=== PATIENT | female | born 1950 | race Caucasian/White ===

== ENCOUNTER → 2016-09-05 | Outpatient (REF) | payer MEDICARE, BC ==
[~2016-09-05] MED LIST: AMLO10TA2 PO; BENA25TA4 PO; BIOT10005 PO; FURO20TA2 PO; LANS30CA PO; MULTCAP PO; MYLI40DR PO; PRAV10TA PO; PROTPAK PO; RANI1TAB6 PO; REGL10TA6 PO; VITA100037 PO; ZOLO25TA PO; estroven OR; treximet OR
[2016-09-05 14:07] LABS: FOLATE 23.1 NG/ML
== END ==
LOC: M LAB REF 13:04
PROVIDERS: ATTEND Internal Medicine
DX: R20.2 Paresthesia of skin (principal)

== ENCOUNTER → 2017-02-04 | Outpatient (REF) | payer MEDICARE, BC ==
[~2017-02-04] MED LIST changes: -BIOT10005 PO; +BIOT10008 PO; -PRAV10TA PO; +PRAV10TA4 PO; -VITA100037 PO; +VITA100067 PO
[2017-02-07 00:08] LABS: Lyme Disease IgG/IgM Antibodie <0.91 ISR (0.00-0.90); Lyme Disease IgM Ab Quantitati <0.80 index (0.00-0.79)
== END ==
LOC: M LABNEURO 13:31
PROVIDERS: ATTEND Physician Assistant Medical
DX: M25.50 Pain in unspecified joint (principal); R51 Headache

== ENCOUNTER → 2018-08-20 | Outpatient (REF) | payer MEDICARE, BC ==
[~2018-08-20] MED LIST changes: -AMLO10TA2 PO; +AMLO10TA5 PO
[2018-08-20 20:20] LABS: FOLATE 23.1 NG/ML
== END ==
LOC: M LAB REF 16:58
PROVIDERS: ATTEND Internal Medicine
DX: R20.2 Paresthesia of skin (principal)

== ENCOUNTER → 2019-01-20 | Outpatient (REF) | payer MEDICARE, BC ==
[~2019-01-20] MED LIST changes: +RANI-356 PO; -RANI1TAB6 PO
== END ==
LOC: M LAB REF 12:35
PROVIDERS: ATTEND Internal Medicine
DX: M79.10 Myalgia, unspecified site (principal)

== ENCOUNTER → 2019-05-20 | Outpatient (CLI) | payer MEDICARE, BC ==
[~2019-05-20] MED LIST changes: -RANI-356 PO; +RANI-397 PO
[2019-05-20 10:53] LABS: BASO % 0.3 % (0.0-1.0); EOS # 0.2 10^3/uL (0.0-0.5); EOS % 2.9 % (0.0-3.0); HEMATOCRIT 46.9 % (36.0-47.0); HEMOGLOBIN 14.9 g/dl (12.0-15.5); LYMPH # 2.7 10^3/uL (1.5-5.0); MEAN CORPUSCULAR HEMOGLOBIN 30.7 pg (27.0-33.0); MEAN CORPUSCULAR HGB CONC 31.8 g/dl (32.0-36.5); MEAN CORPUSCULAR VOLUME 96.7 fl (80.0-96.0); MONO # 0.5 10^3/uL (0.0-0.8); MONO % 7.8 % (0.0-5.0); NEUTROPHILS % 46.7 % (36.0-66.0); PLATELET COUNT, AUTOMATED 341 10^3/uL (150-450); RED BLOOD COUNT 4.85 10^6/uL (4.00-5.40); WHITE BLOOD COUNT 6.5 10^3/uL (4.0-10.0)
[2019-05-20 11:13] LABS: ALBUMIN 4.1 GM/DL (3.2-5.2); ALT/SGPT 28 U/L (12-78); BILIRUBIN,TOTAL 0.5 MG/DL (0.2-1.0); BLOOD UREA NITROGEN 15 MG/DL (7-18); CALCIUM LEVEL 9.1 MG/DL (8.8-10.2); CARBON DIOXIDE LEVEL 28 MEQ/L (21-32); CHLORIDE LEVEL 107 MEQ/L (98-107); CHOLESTEROL LEVEL 229 MG/DL (<200); CHOLESTEROL RISK RATIO 1.991 (<5); CREATININE FOR GFR 0.79 MG/DL (0.55-1.30); GLOMERULAR FILTRATION RATE > 60.0 (>39); GLUCOSE, FASTING 108 MG/DL (70-100); HDL CHOLESTEROL 115 MG/DL (>40); LDL CHOLESTEROL 83 MG/DL (<100); NON-HDL-C 114 MG/DL; POTASSIUM SERUM 4.6 MEQ/L (3.5-5.1); SODIUM LEVEL 141 MEQ/L (136-145); TOTAL PROTEIN 7.5 GM/DL (6.4-8.2); TRIGLYCERIDES LEVEL 153 MG/DL (<150)
[2019-05-20 11:51] LABS: HEMOGLOBIN A1c 6.2 %
== END ==
LOC: M PLALAB 07:54
PROVIDERS: ATTEND Physician Assistant
DX: F33.1 Major depressive disorder, recurrent, moderate (principal); Z79.899 Other long term (current) drug therapy

== ENCOUNTER → 2019-10-11 | Outpatient (CLI) | payer MEDICARE, BC ==
[2019-10-11 15:49] LABS: ALBUMIN 3.8 GM/DL (3.2-5.2); ALT/SGPT 30 U/L (12-78); BILIRUBIN,TOTAL 0.3 MG/DL (0.2-1.0); BLOOD UREA NITROGEN 17 MG/DL (7-18); CALCIUM LEVEL 8.9 MG/DL (8.8-10.2); CARBON DIOXIDE LEVEL 26 MEQ/L (21-32); CHLORIDE LEVEL 108 MEQ/L (98-107); CREATININE FOR GFR 0.87 MG/DL (0.55-1.30); GLOMERULAR FILTRATION RATE > 60.0 (>39); GLUCOSE, FASTING 141 MG/DL (70-100); MAGNESIUM LEVEL 2.1 MG/DL (1.8-2.4); POTASSIUM SERUM 3.6 MEQ/L (3.5-5.1); SODIUM LEVEL 141 MEQ/L (136-145)
[2019-10-11 16:01] LABS: VITAMIN B12 LEVEL 691 PG/ML (247-911)
[2019-10-11 16:38] LABS: TOTAL 25(OH) VITAMIN D 37.4 NG/ML (30.0-100.0)
== END ==
LOC: M PLALAB 13:32
PROVIDERS: ATTEND Internal Medicine Gastroenterology
DX: K59.00 Constipation, unspecified (principal); R10.13 Epigastric pain; K44.9 Diaphragmatic hernia without obstruction or gangrene; R14.3 Flatulence; R13.10 Dysphagia, unspecified; E55.9 Vitamin D deficiency, unspecified

== ENCOUNTER → 2020-03-02 | Outpatient (CLI) | payer MEDICARE, BC ==
[~2020-03-02] MED LIST changes: -AMLO10TA5 PO; +AMLO1TAB25 PO
[2020-03-02 14:35] LABS: FERRITIN 50 NG/ML (8-252); IRON (FE) 115 UG/DL (50-170); RHEUMATOID FACTOR QUANT < 10.0 IU/ML (<15.0)
[2020-03-02 14:42] LABS: FOLATE > 24.0 NG/ML (>5.4); VITAMIN B12 LEVEL 932 PG/ML (247-911)
[2020-03-04 13:07] LABS: ANTINUCLEAR ANTIBODIES DIRECT Negative (Negative)
== END ==
LOC: M PLALAB 09:31
PROVIDERS: ATTEND Physician Assistant Medical
DX: R53.83 Other fatigue (principal); R53.1 Weakness; M54.5 Low back pain; G90.09 Other idiopathic peripheral autonomic neuropathy

== ENCOUNTER → 2020-04-13 | Outpatient (CLI) | payer SELFPAY | LOC: M LABSMTC 13:58 | PROVIDERS: ATTEND Pediatrics | DX: Z20.828 Contact with and (suspected) exposure to other viral communicable diseases (principal) ==

== ENCOUNTER 2020-07-10 16:41 | Emergency (ER) | payer MEDICARE, BC ==
[2020-07-10] MEDS ORDERED: GABA-282 (16:56)
[2020-07-10] MEDS ORDERED: NARA2.5T (16:56)
[2020-07-10] MEDS ORDERED: NORT10CA2 (16:56)
[2020-07-10] MEDS ORDERED: BUSP5TA (16:56)
[2020-07-10] MEDS ORDERED: AIMO70IN2 (16:56)
[2020-07-10] MEDS ORDERED: ZONI100C17 (16:56)
[2020-07-10] MEDS ORDERED: METOCLOPRAMIDE INJ 10MG/2ML VIAL (J2765 PER 1) IV ONE (17:25)
[2020-07-10] MEDS ORDERED: NORCO, ANEXSIA 5/325MG TABLET (HYDROcodone/ACETAMINOPHEN) PO ONE (17:25)
--- NOTE | 2020-07-10 17:30 | REP ---
INDICATION: fall on ice COMPARISON: None. TECHNIQUE: AP, lateral, bilateral oblique views. FINDINGS: There is an oblique nondisplaced fracture of the distal fibular diaphysis and fracture of the posterior malleolus along with diffuse ankle swelling. IMPRESSION: Fractures of the distal fibula and posterior malleolus with swelling. <Electronically signed by Regino Meeks > 07/10/20 [id number]
--- NOTE | 2020-07-10 17:31 | REP ---
INDICATION: fall on ice COMPARISON: None. TECHNIQUE: AP, and lateral views of the left tibia/fibula. FINDINGS: There is a nondisplaced oblique fracture of the distal fibular shaft and posterior malleolus of the tibia with soft tissue swelling. IMPRESSION: Fracture of the distal fibula and posterior tibial malleolus. <Electronically signed by Regino Meeks > 07/10/20 [id number]
[2020-07-10] MEDS ORDERED: HYDR-3713 PO (18:35)
[2020-07-10] MEDS ORDERED: ROLLMIS8 XX (18:59)
[2020-07-10 19:10] VITALS: BP 141/77
--- NOTE | 2020-07-11 07:28 | REP ---
INDICATION: post splinting films COMPARISON: 07/10/2020 TECHNIQUE: AP, lateral, bilateral oblique views. FINDINGS: Patient is status post splinting for distal fibular and posterior malleolar fractures. IMPRESSION: Status post splinting for fractures. <Electronically signed by Regino Meeks > 07/10/20 [id number]
[2020-07-13] MEDS ORDERED: ONDA-83 (15:36)
[2020-07-13] MEDS ORDERED: MULT1TAB74 PO (15:37)
[2020-07-13] MEDS ORDERED: LEXA1TAB2 (15:37)
[2020-07-13] MEDS ORDERED: FISH1000 PO (15:37)
== END 2020-07-10 19:12 | disposition home or self-care (01) ==
LOC: M ED 16:41
DX: S82.832A Other fracture of upper and lower end of left fibula, initial encounter for closed fracture (principal); S82.55XA Nondisplaced fracture of medial malleolus of left tibia, initial encounter for closed fracture; W00.0XXA Fall on same level due to ice and snow, initial encounter; Y92.008 Other place in unspecified non-institutional (private) residence as the place of occurrence of the external cause; Y93.9 Activity, unspecified; Y99.9 Unspecified external cause status; G43.909 Migraine, unspecified, not intractable, without status migrainosus; I10 Essential (primary) hypertension; E78.5 Hyperlipidemia, unspecified; Z88.2 Allergy status to sulfonamides; Z79.899 Other long term (current) drug therapy
CPT/HCPCS: 73590; 73610; 96374; 99284; J2765

== ENCOUNTER → 2020-07-13 | Outpatient (CLI) | payer MEDICARE, BC ==
[~2020-07-13] MED LIST changes: +AIMO70IN2 IM; +AMLO1TAB24 PO; +BUSP5TA PO; +FISH1000 PO; +GABA-282; +HYDR-3713 PO; +LEXA1TAB2 PO; +MULT1TAB74 PO; +NARA2.5T PO; +NORT10CA2 PO; +ONDA-83 PO; +PRAV20TA2 PO; +ROLLMIS8 XX; +ZONI100C17 PO
== END ==
LOC: M LABSMTC 13:47
PROVIDERS: ATTEND Anesthesiology
DX: Z01.812 Encounter for preprocedural laboratory examination (principal); Z20.822 Contact with and (suspected) exposure to COVID-19

== ENCOUNTER 2020-07-17 11:54 | Observation (INO) | payer MEDICARE, BC ==
[~2020-07-17] VITALS: Ht 165.1 cm; Wt 67.7 kg
[~2020-07-17 11:54] MED LIST changes: -AMLO1TAB24 PO; +LIDOCAINE 1% MDV 20ML VIAL SQ PRN; +LR 1,000 ML IV ONE; -PRAV20TA2 PO; +ceFAZolin SOD 2 GM in IV 1 EA IV ONE
[2020-07-17] MEDS ORDERED: ONDANSETRON 4MG/2ML VIAL As Ordered ONE (13:52)
[2020-07-17] MEDS ORDERED: propofoL 200 MG/20 ML VIAL As Ordered ONE ×2 (13:53→15:26)
[2020-07-17] MEDS ORDERED: LIDOCAINE 2% 100MG/5ML SDV (FOR ANES.) As Ordered ONE (13:53)
[2020-07-17] MEDS ORDERED: MIDAZOLAM INJ 2MG/2ML VIAL (J2250 PER 1MG) As Ordered ONE (13:53)
[2020-07-17] MEDS ORDERED: fentaNYL 100 MCG/2 ML INJECTION (J3010) As Ordered ONE (13:53)
[2020-07-17] MEDS ORDERED: dexameTHASONE 4 MG/ML 1ML VIAL (J1100 PER 1MG) As Ordered ONE (13:58)
[2020-07-17] MEDS ORDERED: ceFAZolin 1GM VIAL (J0690 PER 500MG) As Ordered ONE (14:23)
--- NOTE | 2020-07-17 14:52 | ECGEPIP ---
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
[2020-07-17] MEDS ORDERED: BUPIVACAINE/EPIN 0.25% 30 ML VIAL As Ordered ONE (15:04)
[2020-07-17] MEDS ORDERED: HYDROmorphone HCL 2 MG/ML 1ML VIAL (J1170) As Ordered ONE (15:42)
[2020-07-17] MEDS ORDERED: PHENYLephrine 500MCG 5ML (100MCG/ML) SYRINGE As Ordered ONE (15:51)
[2020-07-17] MEDS ORDERED: ACETAMINOPHEN 1000MG 100ML IV BTL (OFIRMEV) (J0131 PER 10MG) As Ordered ONE (15:51)
--- NOTE | 2020-07-17 17:08 | REP ---
INDICATION: ORIF LEFT ANKLE. COMPARISON: None. TECHNIQUE: Intraoperative fluoroscopic imaging using portable C-arm technique. FINDINGS: Images demonstrate fixation for distal fibular and medial malleolar fractures. Posterior malleolar fracture identified. Total fluoroscopic time 63.3 seconds. IMPRESSION: Open reduction and fixation. <Electronically signed by Regino Meeks > 07/17/20 [id number]
[2020-07-17] MEDS ORDERED: ACETAMINOPHEN TAB 650MG DOSE (2X325MG) PO PRN (17:15)
[2020-07-17] MEDS ORDERED: ONDANSETRON 4MG/2ML VIAL IV PRN ×2 (17:15)
[2020-07-17] MEDS ORDERED: LR 1,000 ML IV SCH (17:15)
[2020-07-17] MEDS ORDERED: MORPHINE 2 MG/ML 1ML VIAL (J2270) IV PRN (17:15)
[2020-07-17] MEDS ORDERED: PERCOCET 5MG/325MG TAB PO PRN (17:15)
[2020-07-17] MEDS: fentaNYL 100 MCG/2 ML INJECTION (J3010) IV PRN ×2 (17:18→17:31)
[2020-07-17] MEDS: oxyCODONE 5MG TAB PO PRN ×2 (17:21→19:51)
[2020-07-17] MEDS: HYDROMORPHONE HCL 0.5 MG/ 0.5 ML SYRINGE (J1170 PER 1) IV PRN ×2 (17:47→18:03)
--- NOTE | 2020-07-17 19:06 | ROOPDOC ---
[facility] Report Of Operation Report of Operation DATE OF PROCEDURE: 07/17/20 PREPROCEDURE DIAGNOSES: Left ankle fracture. POSTPROCEDURE DIAGNOSES: Left ankle fracture. PROCEDURE: Left ankle open reduction internal fixation. SURGEON: Dr. Jacky Nair MD INCIDENT ENGINEER: Not applicable ANESTHESIA: Gen. anesthesia Dr. Zaragoza. ESTIMATED BLOOD LOSS: Approximately 50 mL. COMPLICATIONS: None. REMARKS: Follow-up in 2 weeks' time. Nonweightbearing. Prescription sent into pharmacy [facility]. Appropriate narcotic counseling given. Risk factors for harms from taking opioid medications discussed and assessed including but not limited to personal or family history of substance use disorder, anxiety or depression, , age 65 or older, COPD or other underlying respiratory conditions, and renal or hepatic insufficiency. Discussed with patient concerns and determined any harms they may experience or be currently experiencing such as nausea or constipation, feeling sedated or confused, breathing interruptions during sleep, or taking or craving more opioids than prescribed or difficulty controlling use (addiction). Discussed early warning signs of overdose including confusion, sedation, slurred speech, abnormal gait. PROCEDURE NOTE: The 69-year-old female sustained an unstable left ankle fracture. We discussed the pros and cons to risks and benefits go ahead with surgery. She wished to proceed. Marked left lower extremity she had no further questions. The risks, including, but not limited to bleeding, infection, damage to nerves, vessels, and other structures, continued pain, delayed, mal, or nonunion if fracture, stiffness, recurrence or re-tear, need for further surgery, blood clots, medical problems and , were discussed. The patient understands and provided informed consent. DESCRIPTION OF PROCEDURE: Patient is brought to the operating theater. They were placed supine on the operating room table. General anesthesia was induced. 2 g of IV Ancef was given prior to the start of the case. Bump was placed under the left hip. Tourniquet was placed to the left thigh 34 inches appropriately padded. All bony prominences appropriately padded. SCD used on the down leg. Bone foam leg positioner was used to elevate the leg. Leg was prepped and draped in the usual sterile fashion with chlorhexidine-based prep solution allowing the prep solution to thoroughly dry for over 3 minutes time prior to draping. Preoperative timeout was performed, to confirm the site the patient and the surgery. I began by elevating the limb and inflating the tourniquet to 250 mmHg. I made a standard lateral incision approach to the distal fibula. I carried this dissection down through skin and subcutaneous tissue achieved meticulous he mostasis. I identified the fracture site. I cleaned away any interposed periosteum and hematoma. I achieved a preliminary reduction with pointed fracture reduction forceps. I used lag by technique to insert a 2.7 mm fully threaded cortical screw from proximal anterior to distal posterior. This achieved good purchase and compression at the fracture site. I precontoured a 8 hole one third tubular plate to the lateral side of the fibula with 3 holes proximal to the fracture site and 3 holes distal. I then inserted 3 fully threaded cortical screws proximal to the fracture site to secure the plate down to bone. I inserted 2 fully threaded cortical screws distal to the fracture as well as one fully threaded cancellus screw at the distal most hole of the plate. I then made a standard slightly curved incision longitudinally over the medial malleolus. I carried this dissection down through skin and subcutaneous tissue achieved meticulous hemostasis. I protected the saphenous vein and retracted this anteriorly. I identified the fracture site. There is a mild amount of comminution posteromedially. I removed this from around the posterior tibialis tendon. I then placed 2 partially-threaded cancellus 4.0 mm cannulated screws across the medial malleolus. The fractures appeared out to length well aligned with no talar shift and normal tibiofibular clear space and overlap. I then performed the cotton workup / hook test with no increase at the syndesmosis no widening as well as an external rotation stress test that showed the syndesmosis to be stable. Tourniquet was let down at the end of the case. Wounds were thoroughly irrigated with normal saline. Subcutaneous tissue is closed with interrupted 2-0 Vicryl sutures and skin yaa. Skin is clean with wet-to-dry dressing. 12 mL of 1/4% Marcaine with 1 in 100,000 epinephrine was instilled in around the incision sites. Adaptic, 4 x 8 gauze, ABDs dressings were then placed and over wrapped with sterile cast padding. Below-knee 3 sided plaster of Lisset splint was then placed and allowed to fully harden with the foot in neutral and overwrapped with 6 inch Felipe bandages. Patient was woken up from a general anesthetic transferred off the operating table and taken to postanesthetic care unit in stable condition. All sponge, needle and instrument counts are correct. No complications. Estimated blood loss 50 mL. Plan for the patient is to be nonweightbearing follow-up in the office in 2 weeks' time. Prescription has been sent into pharmacy of choice electronically. They will be discharged home according to day surgery criteria when they are comfortable. I communicated this to her son over the phone prior to the case. I saw the patient afterwards in holding and there were neurovascularly intact and comfortable. I have chosen not to use VTE prophylaxis due to this being a below the knee surgery and not routinely indicated. JACKY NAIR MD Jul 17, 2020 19:06
[2020-07-17] MEDS ORDERED: oxyCODONE 5MG TAB As Ordered ONE (19:22)
[2020-07-17] MEDS ORDERED: PRAV20TA2 PO (19:58)
[2020-07-17] MEDS ORDERED: AMLO1TAB24 PO (19:58)
--- NOTE | 2020-07-17 20:21 | HPEPDOC ---
[facility] Medical History & Physical Date of Admission Jul 17, 2020 Date of Service: Jul 17, 2020 History and Physical CHIEF COMPLAINT: Hypoxia Oxygen saturation mid 80s on room air in the recovery room postop left ankle ORIF HISTORY OF PRESENT ILLNESS: 69-year-old female, focal with history of obstructive sleep apnea not on CPAP, COPD not on home oxygen without hypoxic respiratory failure, status post left ankle ORIF secondary to left ankle fracture, status post rheumatic injury admitted for observation due to hypoxia postoperatively after being given fent anyl for pain control. Patient has underlying obstructive sleep apnea but has not seen a morphology teacher in several years and managed by her primary care physician, Dr. Cielo Sheehan patient does not have CPAP at home. Patient's oxygen level was in the mid 80s on finger pulse oximeter which improved once she awakened. Hospitalist was asked to admit her for observation overnight due to hypoxia was likely secondary to pain medications in the setting of chronic obstructive sleep apnea. Patient otherwise denies fever, chills, cough, shortness of breath, chest pain, pressure, tightness, lightheadedness, dizziness, nausea, vomiting, diarrhea, abdominal pain, constipation, weight changes, changes in sleep habits, sore throat, changes in vision, tinnitus, ear discharge, polyuria, polydipsia, polyphagia, skin rashes, depression bilateral upper and lower extremity weakness or paresthesias. She complains of 5 out of 10 pain in the left foot, status post ORIF. PAST MEDICAL HISTORY: Obstructive sleep apnea not on CPAP, COPD, not oxygen or steroid dependent, hypertension, depression, migraines, anxiety, hypercholesterolemia, gastritis, PAST SURGICAL HISTORY: Brittnee fundoplication laparoscopic cholecystectomy tracheotomy, bunion removal, back surgery, total hysterectomy, EGD SOCIAL HISTORY: [id number] history of smoking previously smoked 3 packs per day from age 16 to age 30. Quit many years ago. Quit alcohol use. She is a caregiver for her . Previously worked as [employer] or [employer] for 30 years but retired since her healthcare proxy is her , [place] [phone]. She is a full code FAMILY HISTORY: Both parents are . Father age of 48 with CAD, ID. Mother at the age of 92 with heart disease ALLERGIES: Please see below. REVIEW OF SYSTEMS: 10 point review of system is negative aside from positive findings in HPI HOME MEDICATIONS: Please see below. PHYSICAL EXAMINATION: VITAL SIGNS: See below GENERAL APPEARANCE: Awake, alert, oriented 3. No conversational dyspnea. No pallor, icterus or jaundice. Speaks in full sentences without use of respiratory accessory muscles HEENT: Face is symmetric. Tongue is midline. Pupils equally round, reactive to light accommodation. Extra muscles are intact. Trachea and uvula are midline. No JVD, thyromegaly, stridor or cervical lymphadenopathy. Dry mucous membranes. No carotid bruits CARDIOVASCULAR: S1, S2 regular rate rhythm, no murmurs, rubs or gallops LUNGS: Air entry is equal bilaterally. No scoliosis. No use of respiratory a ccessory muscles. Clear to auscultation with bronchial breath sounds. No adventitious breath sounds without wheezing, rales or rhonchi ABDOMEN: Positive bowel sounds, soft, nontender, nondistended, no rebound, guarding, hepatosplenomegaly, or fluid wave. No abdominal bruits noted EXTREMITIES: Postop left ankle . No pitting edema bilateral lower extremities SKIN: Warm, dry, pink in color LABORATORY DATA: See below. IMAGING: Intraoperative fluoroscopic imaging using portable C-arm technique. FINDINGS: Images demonstrate fixation for distal fibular and medial malleolar fractures. Posterior malleolar fracture identified. Total fluoroscopic time 63.3 seconds. IMPRESSION: Open reduction and fixation. <Electronically signed by Regino Meeks > 07/17/20 1624 MICROBIOLOGY: Please see below. ASSESSMENT/PLAN: 69-year-old female, focal with history of obstructive sleep apnea not on CPAP, COPD not on home oxygen without hypoxic respiratory failure, status post left ankle ORIF secondary to left ankle fracture, status post rheumatic injury admitted for observation due to hypoxia postoperatively after being given fe ntanyl for pain control. Patient has underlying obstructive sleep apnea but has not seen a morphology teacher in several years and managed by her primary care physician, Dr. Cielo Sheehan patient does not have CPAP at home. Patient's oxygen level was in the mid 80s on finger pulse oximeter which improved once she awakened. Hospitalist was asked to admit her for observation overnight due to hypoxia was likely secondary to pain medications in the setting of chronic obstructive sleep apnea. Postoperative hypoxemia in the setting of chronic obstructive sleep apnea and pain medications status post anesthesia -Patient is otherwise hemodynamically stable without tachypnea or tachycardia. She appears stable now awake on room air satting 99-100%. She admits to nonco mpliance with CPAP due to chronic migraines and intolerance of CPAP with worsening headaches during the night. -LOUISE protocol, 2 L oxygen daily at bedtime. Minimize sedatives and pain medications. No signs of COPD exacerbation without wheezing on examination to warrant steroid use. As needed nebulizers will be provided. Left ankle fracture status post ORIF -Postop management per orthopedic surgery, Dr. Oneal , including DVT prophylaxis, pain medications, bowel regimen and activity recommendations. PTOT consult in the morning Hypertension, uncontrolled -Secondary to pain. Resume home medications. Titrate as needed for better blood pressure control Hypercholesterolemia -Chronic GERD/history of Brittnee fundoplication/gastritis -Chronic. Resume home meds Obstructive sleep apnea -Does not use CPAP at home due to intolerance with worsening migraines at night. History of migraines -Currently asymptomatic. Patient follows at [facility] with Barbara Haddad and Dr. GOODE , status post Botox injections and on chronic migraine prophylaxis therapy. COPD, compensated -Avoid oversedation with pain medications due to risk of respiratory acidosis with underlying obstructive sleep apnea and COPD. As needed nebulizers Diet: 2 g sodium DVT prophylaxis: Per orthopedic surgery CODE STATUS: Full code Vital Signs Vital Signs Date Time Temp Pulse Resp B/P (MAP) Pulse Ox O2 Delivery O2 Flow Rate FiO2 07/17/20 20:00 82 18 94 Room Air 07/17/20 19:45 156/83 (107) 07/17/20 18:15 96.9 07/17/20 17:25 3 Home Medications Scheduled Amlodipine Besylate (Amlodipine Besylate) 5 Mg Tablet, 5 MG PO QHS Buspirone HCl (Buspirone HCl) 5 Mg Tablet, 5 MG PO DAILY Erenumab-Aooe (Aimovig Autoinjector) 140 Mg/1 Ml Auto.injct, 140 MG IM QMONTH 1ST DAY OF THE MONTH Escitalopram Oxalate (Lexapro) 20 Mg Tablet, 20 MG PO DAILY Multivitamin (Multivitamins) 1 Each Tablet, 1 TAB PO DAILY Nortriptyline HCl (Nortriptyline HCl) 10 Mg Capsule, 10 MG PO QHS [place]-3 Fatty Acids/Fish Oil (Fish Oil 1,000 mg Capsule) 1 Each Capsule, 1,000 MG PO DAILY Pravastatin Sodium (Pravastatin Sodium) 20 Mg Tablet, 20 MG PO QHS Zonisamide (Zonisamide) 100 Mg Capsule, 100 MG PO QHS Scheduled PRN Naratriptan HCl (Naratriptan HCl) 2.5 Mg Tablet, 2.5 MG PO DAILY PRN for MIGRAINE Ondansetron HCl (Ondansetron HCl) 4 Mg Tablet, 4 MG PO Q6H PRN for NAUSEA OR VOMITING Allergies Coded Allergies: Sulfa (Sulfonamide Antibiotics) (Verified Allergy, Intermediate, HIVES, 07/10/20) A-FIB/CHADSVASC A-FIB History Current/History of A-Fib/PAF?: No Current PO Anticoag Therapy: No Age/Risk Factor Scoring CHADSVASC: CHADSVASC Response (Comments) Value Age Risk Factor Age 65-74 years old 1 Gender Risk Factor Female 1 Hx of CHF No 0 Hx of HTN Yes 1 Hx of Stroke/TIA/or VTE No 0 Hx of Diabetes No 0 Hx of Vascular Disease No 0 Total 3 Treatment Treatment ordered: NONE MAR PAEZ MD Jul 17, 2020 20:20
[2020-07-17 20:22] VITALS: BP 151/81
[2020-07-17 20:52] VITALS: BP 144/77
[2020-07-17 21:52] VITALS: BP 142/76
[2020-07-17 22:52] VITALS: BP 116/60
[2020-07-17] MEDS: LR 1,000 ML IV SCH (23:47)
[2020-07-17 23:52] VITALS: BP 123/69
[2020-07-18 00:52] VITALS: BP 126/67
[2020-07-18] MEDS: LR 1,000 ML IV SCH (01:15)
[2020-07-18 05:44] LABS: HEMATOCRIT 34.1 % (36.0-47.0); HEMOGLOBIN 10.8 g/dl (12.0-15.5); MEAN CORPUSCULAR HEMOGLOBIN 30.4 pg (27.0-33.0); MEAN CORPUSCULAR HGB CONC 31.7 g/dl (32.0-36.5); MEAN CORPUSCULAR VOLUME 96.1 fl (80.0-96.0); PLATELET COUNT, AUTOMATED 360 10^3/uL (150-450); RED BLOOD COUNT 3.55 10^6/uL (4.00-5.40); WHITE BLOOD COUNT 6.8 10^3/uL (4.0-10.0)
[2020-07-18 06:00] VITALS: BP 122/67
[2020-07-18] MEDS: PERCOCET 5MG/325MG TAB PO PRN ×2 (06:14→11:13)
[2020-07-18 06:25] LABS: BLOOD UREA NITROGEN 12 MG/DL (7-18); CARBON DIOXIDE LEVEL 28 MEQ/L (21-32); CHLORIDE LEVEL 107 MEQ/L (98-107); CREATININE FOR GFR 0.66 MG/DL (0.55-1.30); GLOMERULAR FILTRATION RATE > 60.0 (>39); GLUCOSE, FASTING 116 MG/DL (70-100); POTASSIUM SERUM 4.3 MEQ/L (3.5-5.1); SODIUM LEVEL 140 MEQ/L (136-145)
[2020-07-18 06:26] LABS: CALCIUM LEVEL 8.4 MG/DL (8.8-10.2); CHOLESTEROL LEVEL 173 MG/DL (<200); CHOLESTEROL RISK RATIO 1.765 (<5); HDL CHOLESTEROL 98 MG/DL (>40); LDL CHOLESTEROL 63 MG/DL (<100); NON-HDL-C 75 MG/DL; THYROID STIMULATING HORMONE 0.471 uIU/ML (0.358-3.740); TRIGLYCERIDES LEVEL 61 MG/DL (<150)
[2020-07-18] MEDS ORDERED: ENOXAPARIN 40MG/0.4ML SYRINGE (J1650 PER 10MG) SC SCH (09:00)
[2020-07-18 10:00] VITALS: BP 124/68
--- NOTE | 2020-07-18 17:24 | DS.PDOC ---
Discharge Summary General Date of Admission 07/18/20 Date of Discharge 07/18/20 Discharge Summary PROCEDURES PERFORMED DURING STAY: [None]. ADMITTING DIAGNOSES: Postoperative hypoxemia Left ankle fracture status post ORIF Hypertension, uncontrolled Hypercholesterolemia Obstructive sleep apnea GERD/history of Brittnee fundoplication/gastritis History of migraines COPD, compensated DISCHARGE DIAGNOSES: Left ankle fracture status post ORIF Hypertension, uncontrolled Hypercholesterolemia Obstructive sleep apnea GERD/history of Brittnee fundoplication/gastritis History of migraines COPD, compensated COMPLICATIONS/CHIEF COMPLAINT: Left Ankle Fracture. HISTORY OF PRESENT ILLNESS: 69-year-old female, focal with history of obstructive sleep apnea not on CPAP, COPD not on home oxygen without hypoxic respiratory failure, status post left ankle ORIF secondary to left ankle fracture, status post rheumatic injury admitted for observation due to hypoxia postoperatively after being given fentanyl for pain control. Patient has underlying obstructive sleep apnea but has not seen a waiter/waitress tavern in several years and managed by her primary care physician, Dr. Cielo Sheehan patient does not have CPAP at home. Patient's oxygen level was in the mid 80s on finger pulse oximeter which improved once she awakened. Hospitalist was asked to admit her for observation overnight due to hypoxia was likely secondary to pain medications in the setting of chronic obstructive sleep apnea. Patient otherwise denies fever, chills, cough, shortness of breath, chest pain, pressure, tightness, lightheadedness, dizziness, nausea, vomiting, diarrhea, abdominal pain, constipation, weight changes, changes in sleep habits, sore throat, changes in vision, tinnitus, ear discharge, polyuria, polydipsia, polyphagia, skin rashes, depression bilateral upper and lower extremity weakness or paresthesias. She complains of 5 out of 10 pain in the left foot, status post ORIF. HOSPITAL COURSE: During the hospital stay following issue addressed Postoperative hypoxemia in the setting of chronic obstructive sleep apnea and pain medications status post anesthesia Patient was treated with inhalers, oxygen supplementation and CPAP with positive dynamics Left ankle fracture status post ORIF -Postop management per orthopedic surgery, Dr. Oneal , including DVT prophylaxis, pain medications, bowel regimen and activity recommendations Hypertension, uncontrolled -Secondary to pain. Resume home medications. Titrate as needed for better blood pressure control Hypercholesterolemia -Chronic GERD/history of Brittnee fundoplication/gastritis -Chronic. Resume home meds Obstructive sleep apnea -Does not use CPAP at home due to intolerance with worsening migraines at night. History of migraines -Currently asymptomatic. Patient follows at [facility] with Babrara Haddad and Dr. GOODE , status post Botox injections and on chronic migraine prophylaxis therapy. COPD, compensated -Avoid oversedation with pain medications due to risk of respiratory acidosis with underlying obstructive sleep apnea and COPD. As needed nebulizers DISCHARGE MEDICATIONS: Please see below. ALLERGIES: Please see below. PHYSICAL EXAMINATION ON DISCHARGE: GENERAL APPEARANCE: Awake, alert, oriented 3. No conversational dyspnea. No pallor, icterus or jaundice. Speaks in full sentences without use of respiratory accessory muscles HEENT: Face is symmetric. Tongue is midline. Pupils equally round, reactive to light accommodation. Extra muscles are intact. Trachea and uvula are midline. No JVD, thyromegaly, stridor or cervical lymphadenopathy. Dry mucous membranes. No carotid bruits CARDIOVASCULAR: S1, S2 regular rate rhythm, no murmurs, rubs or gallops LUNGS: Air entry is equal bilaterally. No scoliosis. No use of respiratory accessory muscles. Clear to auscultation with bronchial breath sounds. No adventitious breath sounds without wheezing, rales or rhonchi ABDOMEN: Positive bowel sounds, soft, nontender, nondistended, no rebound, guarding, hepatosplenomegaly, or fluid wave. No abdominal bruits noted EXTREMITIES: Postop left ankle . No pitting edema bilateral lower extremities SKIN: Warm, dry, pink in color LABORATORY DATA: Please see below. IMAGING:INDICATION: ORIF LEFT ANKLE. COMPARISON: None. TECHNIQUE: Intraoperative fluoroscopic imaging using portable C-arm technique. FINDINGS: Images demonstrate fixation for distal fibular and medial malleolar fractures. Posterior malleolar fracture identified. Total fluoroscopic time 63.3 seconds. IMPRESSION: Open reduction and fixation. PROGNOSIS: Fair ACTIVITY: [As tolerated]. DIET: Regular DISPOSITION: Home ITEMS TO FOLLOWUP ON ON OUTPATIENT: Follow-up with orthopedic surgeon and PCP DISCHARGE CONDITION: [Stable]. TIME SPENT ON DISCHARGE: 20 minutes. Vital Signs/I&Os Vital Signs Date Time Temp Pulse Resp B/P (MAP) Pulse Ox O2 Delivery O2 Flow Rate FiO2 07/18/20 11:13 18 Room Air 07/18/20 10:00 98.5 73 124/68 (86) 96 07/18/20 06:00 2.0 I&O- Last 24 Hours up to 6 AM 07/18/20 06:00 Intake Total 1585 ml Output Total 850 ml Balance 735 ml Laboratory Data Labs 24H Laboratory Tests 2 07/18/20 05:23: Nucleated Red Blood Cells % (auto) 0.0, Anion Gap 5L, Glomerular Filtration Rate > 60.0, Calcium Level 8.4L, Magnesium Level 2.0, Triglycerides Level 61, Total Cholesterol 173, LDL Cholesterol 63, Non-HDL Cholesterol (LDL + VLDL) 75, Total HDL Cholesterol 98, Cholesterol/HDL Ratio 1.765, Thyroid Stimulating Hormone (TSH) 0.471 CBC/BMP Laboratory Tests 07/18/20 05:23 Discharge Medications Scheduled Amlodipine Besylate (Amlodipine Besylate) 5 Mg Tablet, 5 MG PO QHS, (Reported) Buspirone HCl (Buspirone HCl) 5 Mg Tablet, 5 MG PO DAILY, (Reported) Erenumab-Aooe (Aimovig Autoinjector) 140 Mg/1 Ml Auto.injct, 140 MG IM QMONTH, (Reported) 1ST DAY OF THE MONTH Escitalopram Oxalate (Lexapro) 20 Mg Tablet, 20 MG PO DAILY, (Reported) Multivitamin (Multivitamins) 1 Each Tablet, 1 TAB PO DAILY, (Reported) Nortriptyline HCl (Nortriptyline HCl) 10 Mg Capsule, 10 MG PO QHS, (Reported) [place]-3 Fatty Acids/Fish Oil (Fish Oil 1,000 mg Capsule) 1 Each Capsule, 1,000 MG PO DAILY, (Reported) Pravastatin Sodium (Pravastatin Sodium) 20 Mg Tablet, 20 MG PO QHS, (Reported) Zonisamide (Zonisamide) 100 Mg Capsule, 100 MG PO QHS, (Reported) Scheduled PRN Naratriptan HCl (Naratriptan HCl) 2.5 Mg Tablet, 2.5 MG PO DAILY PRN for MIGRAINE, (Reported) Ondansetron HCl (Ondansetron HCl) 4 Mg Tablet, 4 MG PO Q6H PRN for NAUSEA OR VOMITING, (Reported) Allergies Coded Allergies: Sulfa (Sulfonamide Antibiotics) (Verified Allergy, Intermediate, HIVES, 07/10/20) FARZAD NAPIER DO Jul 18, 2020 17:24
== END 2020-07-18 14:30 | disposition home or self-care (01) ==
LOC: M SDC 11:54 → M MS5PR 11:55 → M SDC 20:16 → M MS5PR 07-18 14:30 → M SDC 07-18 14:30
PROVIDERS: ADMIT General Practice; ATTEND General Practice
DX: S82.842A Displaced bimalleolar fracture of left lower leg, initial encounter for closed fracture (principal); W00.0XXA Fall on same level due to ice and snow, initial encounter; Y92.89 Other specified places as the place of occurrence of the external cause; Y93.9 Activity, unspecified; Y99.9 Unspecified external cause status; J95.89 Other postprocedural complications and disorders of respiratory system, not elsewhere classified; R09.02 Hypoxemia; I10 Essential (primary) hypertension; K21.9 Gastro-esophageal reflux disease without esophagitis; J44.9 Chronic obstructive pulmonary disease, unspecified; F32.9 Major depressive disorder, single episode, unspecified; F41.9 Anxiety disorder, unspecified; E78.00 Pure hypercholesterolemia, unspecified; Z87.891 Personal history of nicotine dependence; G47.33 Obstructive sleep apnea (adult) (pediatric); Z88.2 Allergy status to sulfonamides; Z79.899 Other long term (current) drug therapy; G43.909 Migraine, unspecified, not intractable, without status migrainosus; Z91.81 History of falling
CPT/HCPCS: 27814; 36415; 76000; 80048; 80061; 83735; 84443; 85027; 93005; 96372; 97161; 97165; 97530; C1713; G0378; J0131; J0690; J1100; J1170; J1650; J2250; J2370; J2405; J3010

== ENCOUNTER → 2020-08-01 | Outpatient (CLI) | payer MEDICARE, BC ==
[~2020-08-01] MED LIST changes: +AMLO1TAB24 PO; -LIDOCAINE 1% MDV 20ML VIAL SQ PRN; -LR 1,000 ML IV ONE; +PRAV20TA2 PO; -ceFAZolin SOD 2 GM in IV 1 EA IV ONE
--- NOTE | 2020-08-01 15:02 | REP ---
INDICATION: F/U FX. COMPARISON: Comparison radiographs July 10, 2020.. TECHNIQUE: Three views. FINDINGS: Patient is status post distal fibular screw plate fixation and medial malleolar pinning for trimalleolar distal tibial and fibular fractures. Ankle mortise is intact. There is some residual medial and lateral soft tissue swelling. No malalignment or displacement seen. Plantar heel spurring is noted. IMPRESSION: Healing distal fibular and medial malleolar fractures. <Electronically signed by Rancho Stapleton > 08/01/20 [id number]
== END ==
LOC: M SOG 11:49
PROVIDERS: ATTEND Orthopaedic Surgery Sports Medicine
DX: Z47.89 Encounter for other orthopedic aftercare (principal)

== ENCOUNTER → 2020-08-24 | Outpatient (CLI) | payer MEDICARE, BC ==
--- NOTE | 2020-08-24 16:27 | REP ---
INDICATION: A. Fracture follow-up. COMPARISON: Comparison study August 01, 2020 and July 10, 2020.. TECHNIQUE: Four views of the left ankle are obtained. FINDINGS: There is some periosteal reaction consistent with healing at the posterior malleolar and medial malleolar fracture sites. Screw plate fixation device remains in place in the distal fibula and 2 metallic screws are seen in the medial malleolus. Ankle mortise is intact. Diffuse soft tissue swelling persists. There are metallic pins in the 1st metatarsal noted incidentally. IMPRESSION: Healing trimalleolar fracture post orthopedic fixation. <Electronically signed by Rancho Stapleton > 08/24/20 4550
== END ==
LOC: M SOG 15:52
PROVIDERS: ATTEND Orthopaedic Surgery Sports Medicine
DX: Z47.89 Encounter for other orthopedic aftercare (principal)

== ENCOUNTER → 2020-09-08 | Outpatient (RCR) | payer MEDICARE, BC | LOC: M PT 08-16 12:45 | PROVIDERS: ATTEND Orthopaedic Surgery Sports Medicine | DX: Z48.89 Encounter for other specified surgical aftercare (principal); S82.899D Other fracture of unspecified lower leg, subsequent encounter for closed fracture with routine healing ==

== ENCOUNTER → 2020-10-05 | Outpatient (CLI) | payer MEDICARE, BC ==
--- NOTE | 2020-10-05 11:52 | REP ---
INDICATION: F/U FX. COMPARISON: None. TECHNIQUE: AP, lateral, bilateral oblique views of the left ankle FINDINGS: Stable fixation for medial and lateral malleolar fractures again noted. Continued overlying soft tissue swelling again appreciated. No obvious new acute pathology. IMPRESSION: Relatively stable examination. <Electronically signed by Regino Meeks > 10/05/20 0920
== END ==
LOC: M SOG 09:36
PROVIDERS: ATTEND Orthopaedic Surgery Sports Medicine
DX: Z47.89 Encounter for other orthopedic aftercare (principal)

== ENCOUNTER 2020-10-06 11:15 | Outpatient (RCR) | payer MEDICARE, BC | END 2020-10-09 | LOC: M PT 11:15 | PROVIDERS: ATTEND Orthopaedic Surgery Sports Medicine | DX: Z48.89 Encounter for other specified surgical aftercare (principal) ==

== ENCOUNTER 2020-11-02 14:45 | Outpatient (RCR) | payer MEDICARE, BC | END 2020-11-08 | LOC: M PT 14:45 | PROVIDERS: ATTEND Orthopaedic Surgery Sports Medicine | DX: Z48.89 Encounter for other specified surgical aftercare (principal); S82.892D Other fracture of left lower leg, subsequent encounter for closed fracture with routine healing; X58.XXXD Exposure to other specified factors, subsequent encounter ==

== ENCOUNTER → 2020-11-09 | Outpatient (CLI) | payer MEDICARE, BC ==
--- NOTE | 2020-11-09 12:28 | DEXAMM ---
INDICATION: DISORDER OF BONE/M85.80. COMPARISON: Most recent comparison densitometry study is from February 02, 2013. The most remote is October 31, 2003. TECHNIQUE: Bone density was measured using dual-energy x-ray absorptionmetry (DEXA). FINDINGS: AP SPINE L1-L4 BMD 1.262 g/cm2 Young Adult T-Score 0.8 Age Matched Z-Score 2.5. LT FEMUR, TOTAL BMD 0.926 g/cm2 Young Adult T-Score -0.6 Age Matched Z-Score 0.9. LT NECK BMD 0.863 g/cm2 Young Adult T-Score -1.3 Age Matched Z-Score 0.5. RT FEMUR, TOTAL BMD 0.935 g/cm2 Young Adult T-Score -0.6 Age Matched Z-Score 1.0. RT NECK BMD 0.843 g/cm2 Young Adult T-Score -1.4 Age Matched Z-Score 0.4. IMPRESSION: There is normal bone density of the spine. There is low bone density of the left hip. There is low bone density of the right hip. The density of the spine has increased 20.4% since the initial exam on November 03, 2003. The density of the spine increased 5.3% since most recent exam on February 02, 2013. The density of the left hip has decreased 8.1% since initial exam on October 31, 2003. The density of the left hip has decreased 6.5% since most recent exam on September 22, 2017. The density of the right hip has decreased 9.2% since the initial exam on October 31, 2003. The density of the right hip has decreased 3.2% since the most recent exam on September 22, 2017. FOLLOW-UP: Recommendation for the next bone density exam: 2 years. <Electronically signed by Rancho Stapleton > 11/09/20 [id number]
== END ==
LOC: M WHC 11:08
PROVIDERS: ATTEND Internal Medicine
DX: M85.89 Other specified disorders of bone density and structure, multiple sites (principal)

== ENCOUNTER 2020-11-16 10:30 | Outpatient (RCR) | payer MEDICARE, BC | END 2020-12-09 | LOC: M PT 10:30 | PROVIDERS: ATTEND Orthopaedic Surgery Sports Medicine | DX: Z48.89 Encounter for other specified surgical aftercare (principal) ==

== ENCOUNTER → 2020-12-13 | Outpatient (REF) | payer MEDICARE, BC | LOC: M LAB REF 16:27 | PROVIDERS: ATTEND Internal Medicine | DX: R53.83 Other fatigue (principal); R20.2 Paresthesia of skin ==

== ENCOUNTER → 2020-12-19 | Outpatient (CLI) | payer MEDICARE, BC ==
[2020-12-19 12:22] LABS: BASO % 0.3 % (0.0-1.0); EOS # 0.1 10^3/uL (0.0-0.5); EOS % 0.9 % (0.0-3.0); HEMATOCRIT 33.5 % (36.0-47.0); HEMOGLOBIN 10.4 g/dl (12.0-15.5); LYMPH # 2.3 10^3/uL (1.5-5.0); MEAN CORPUSCULAR VOLUME 90.3 fl (80.0-96.0); MONO # 0.7 10^3/uL (0.0-0.8); MONO % 7.4 % (2.0-8.0); NEUTROPHILS # 6.8 10^3/uL (1.5-8.5); NEUTROPHILS % 68.1 % (36.0-66.0); PLATELET COUNT, AUTOMATED 397 10^3/uL (150-450); RED BLOOD COUNT 3.71 10^6/uL (4.00-5.40); WHITE BLOOD COUNT 9.9 10^3/uL (4.0-10.0)
[2020-12-19 12:57] LABS: ERYTHROCYTE SEDIMENTATION RATE 45 mm/hr (0-30)
== END ==
LOC: M LAB 11:17
PROVIDERS: ATTEND Orthopaedic Surgery Sports Medicine
DX: S82.842D Displaced bimalleolar fracture of left lower leg, subsequent encounter for closed fracture with routine healing (principal); X58.XXXD Exposure to other specified factors, subsequent encounter; Y92.89 Other specified places as the place of occurrence of the external cause; Y93.89 Activity, other specified; Y99.8 Other external cause status; T81.41XD Infection following a procedure, superficial incisional surgical site, subsequent encounter

== ENCOUNTER → 2021-01-01 | Outpatient (CLI) | payer MEDICARE, BC ==
--- NOTE | 2021-01-01 13:36 | REP ---
INDICATION: METHICILLIN SUSCEP STAPH INFECTION, UNSP SITE COMPARISON: 10/05/2020 TECHNIQUE: AP and lateral left ankle. FINDINGS: Status post satisfactory open reduction and fixation. Osseous structures are otherwise normal and without periosteal reaction or irregularity to suggest osteomyelitis. Overlying soft tissue swelling is nonspecific. IMPRESSION: Soft tissue swelling. <Electronically signed by Regino Meeks > 01/01/21 [id number]
[2021-01-01 15:20] LABS: BASO % 0.6 % (0.0-1.0); EOS # 0.2 10^3/uL (0.0-0.5); EOS % 2.3 % (0.0-3.0); HEMATOCRIT 35.8 % (36.0-47.0); HEMOGLOBIN 11.3 g/dl (12.0-15.5); LYMPH # 3.1 10^3/uL (1.5-5.0); LYMPH % 47.3 % (24.0-44.0); MEAN CORPUSCULAR HEMOGLOBIN 28.8 pg (27.0-33.0); MEAN CORPUSCULAR HGB CONC 31.6 g/dl (32.0-36.5); MEAN CORPUSCULAR VOLUME 91.3 fl (80.0-96.0); MONO # 0.5 10^3/uL (0.0-0.8); MONO % 8.3 % (2.0-8.0); NEUTROPHILS # 2.7 10^3/uL (1.5-8.5); NEUTROPHILS % 41.3 % (36.0-66.0); PLATELET COUNT, AUTOMATED 451 10^3/uL (150-450); RED BLOOD COUNT 3.92 10^6/uL (4.00-5.40); WHITE BLOOD COUNT 6.5 10^3/uL (4.0-10.0)
[2021-01-01 19:05] LABS: ERYTHROCYTE SEDIMENTATION RATE 18 mm/hr (0-30)
== END ==
LOC: M PLAIMG 12:17
PROVIDERS: ATTEND Internal Medicine Infectious Disease
DX: A49.01 Methicillin susceptible Staphylococcus aureus infection, unspecified site (principal); M25.472 Effusion, left ankle
CPT/HCPCS: 36415; 73600; 85025; 85652; 86140; G0463

== ENCOUNTER → 2021-03-15 | Outpatient (CLI) | payer MEDICARE, BC ==
--- NOTE | 2021-03-15 09:06 | REP ---
INDICATION: ENCNTR SCREEN MAMMO FOR MALIG NEOPLASM OF BREAS. COMPARISON: Multiple the latest 02/02/2013. There are no prior DBT images to review TECHNIQUE: Digital screening mammography was carried out bilaterally in the CC and MLO projections using both 2D and 3D modalities and compared to the prior exams. By history, the patient has no complaints of a palpable breast abnormality or other significant breast complaints. FINDINGS: The breasts are unchanged in size and shape. Dense heterogenous nodular fibroglandular elements are again seen bilaterally. Scattered stable benign appearing calcifications are again seen bilaterally. Some of these are in groups but no one group appears more suspicious than any other. In the right breast near 12 o'clock there is a potential jeffrey asymmetric density. In the left breast central retroareolar region there is a potential jeffrey density. No other suspicious features are seen in either breast. There is no skin thickening or nipple retraction. The Volpara volumetric breast density pattern is b. IMPRESSION: BIRADS/ACR category 0 mammogram. Potential finding seen in each breast as described above. Diagnostic digital DBT spot compression views are recommended bilaterally. Near the 12 o'clock position right breast in central retroareolar region left breast. In addition, bilateral diagnostic ultrasonography may be indicated. This patient's Tyrer-Cuzick lifetime breast cancer risk assessment score is 3.7%. This mammogram was interpreted with the aid of an FDA-approved computer-aided detection system. The patient states she had a clinical breast exam in December 2020. The patient letter being requested is M0. RECOMMENDATION: As above <Electronically signed by Kaiser Bender > 03/15/21 0902
== END ==
LOC: M WHC 08:12
PROVIDERS: ATTEND Internal Medicine
DX: R92.2 Inconclusive mammogram (principal)

== ENCOUNTER → 2021-04-11 | Outpatient (CLI) | payer MEDICARE, BC | LOC: M WHC 09:40 | PROVIDERS: ATTEND Internal Medicine | DX: R92.2 Inconclusive mammogram (principal) | CPT/HCPCS: 76642; 77066; G0279 ==

== ENCOUNTER → 2021-05-08 | Outpatient (CLI) | payer MEDICARE, BC | LOC: M PLAIMG 15:21 | PROVIDERS: ATTEND Internal Medicine | DX: R05.3 Chronic cough (principal) ==

== ENCOUNTER → 2021-05-30 | Outpatient (REF) | LOC: M LABSMTC 09:09 | PROVIDERS: ATTEND Pediatrics | DX: Z20.822 Contact with and (suspected) exposure to COVID-19 (principal) ==

== ENCOUNTER → 2021-07-17 | Outpatient (CLI) | payer MEDICARE, BC | LOC: M PLAIMG 09:49 | PROVIDERS: ATTEND Internal Medicine | DX: R05.9 Cough, unspecified (principal) ==

== ENCOUNTER → 2021-08-23 | Outpatient (REF) | payer MEDICARE, BC | LOC: M LAB REF 12:00 | PROVIDERS: ATTEND Internal Medicine | DX: R53.83 Other fatigue (principal); D50.9 Iron deficiency anemia, unspecified ==

== ENCOUNTER → 2021-10-18 | Outpatient (CLI) | payer MEDICARE, BC ==
[~2021-10-18] MED LIST changes: +METHACHOLINE KIT (J7674) INH ONE; -ZONI100C17 PO; +ZONI100C67 PO
== END ==
LOC: M CARPUL 09:12
PROVIDERS: ATTEND Nurse Practitioner Family
DX: R05.9 Cough, unspecified (principal)
CPT/HCPCS: 94070; 95070; J7674

== ENCOUNTER → 2021-10-31 | Outpatient (REF) | payer MEDICARE, BC ==
[~2021-10-31] MED LIST changes: -METHACHOLINE KIT (J7674) INH ONE
== END ==
LOC: M LAB REF 12:16
PROVIDERS: ATTEND Internal Medicine
DX: R53.83 Other fatigue (principal)

== ENCOUNTER → 2021-11-22 | Outpatient (CLI) | payer MEDICARE, BC | LOC: M CARPUL 14:19 | PROVIDERS: ATTEND Nurse Practitioner Family | DX: R05.9 Cough, unspecified (principal) ==

== ENCOUNTER → 2022-02-15 | Outpatient (REF) | payer MEDICARE, BC | LOC: M LAB REF 16:03 | PROVIDERS: ATTEND Internal Medicine | DX: D50.9 Iron deficiency anemia, unspecified (principal); R53.83 Other fatigue ==

== ENCOUNTER → 2022-05-09 | Outpatient (CLI) | payer MEDICARE, BC | LOC: M WHC 13:54 | PROVIDERS: ATTEND Internal Medicine | DX: Z12.31 Encounter for screening mammogram for malignant neoplasm of breast (principal) ==

== ENCOUNTER → 2022-05-21 | Outpatient (REF) | payer MEDICARE, BC | LOC: M LAB REF 12:39 | PROVIDERS: ATTEND Internal Medicine | DX: D50.9 Iron deficiency anemia, unspecified (principal) ==

== ENCOUNTER → 2022-08-29 | Outpatient (REF) | payer MEDICARE, BC ==
[2022-08-29 15:27] LABS: PERCENT SATURATION 20.2 % (13.2-45.0)
== END ==
LOC: M LAB REF 12:50
PROVIDERS: ATTEND Internal Medicine
DX: D50.9 Iron deficiency anemia, unspecified (principal)

== ENCOUNTER → 2023-02-20 | Outpatient (REF) | payer MEDICARE, BC | LOC: M LAB REF 11:59 | PROVIDERS: ATTEND Internal Medicine | DX: D50.9 Iron deficiency anemia, unspecified (principal) ==

== ENCOUNTER → 2023-05-16 | Outpatient (CLI) | payer MEDICARE, BC | LOC: M PLAIMG 15:05 | PROVIDERS: ATTEND Internal Medicine | DX: R05.9 Cough, unspecified (principal) ==

== ENCOUNTER → 2023-06-12 | Outpatient (CLI) | payer MEDICARE, BC | LOC: M WHC 13:34 | PROVIDERS: ATTEND Internal Medicine | DX: Z12.31 Encounter for screening mammogram for malignant neoplasm of breast (principal); M85.89 Other specified disorders of bone density and structure, multiple sites ==

== ENCOUNTER → 2023-09-02 | Outpatient (REF) | payer MEDICARE, BC | LOC: M LAB REF 18:06 | PROVIDERS: ATTEND Internal Medicine | DX: D50.9 Iron deficiency anemia, unspecified (principal) ==

== ENCOUNTER → 2023-10-10 | Outpatient (CLI) | payer MEDICARE, BC | LOC: M WUC 14:50 | PROVIDERS: ATTEND Nurse Practitioner Family | DX: R05.9 Cough, unspecified (principal); R06.02 Shortness of breath ==

== ENCOUNTER → 2024-05-20 | Outpatient (REF) | payer MEDICARE, BC ==
[~2024-05-20] MED LIST changes: +GABA-1172; -GABA-282
[2024-05-20 18:06] LABS: C REACTIVE PROTEIN QUANTITATIV 2.73 MG/DL (<1.0)
[2024-05-20 18:10] LABS: FERRITIN 77.3 NG/ML (7.3-270.7)
[2024-05-25 11:03] LABS: ANA PATTERN Nuclear, Speckled (NEGATIVE); ANA PATTERN 2 Nuclear, Homogeneous; ANA SCREEN, IFA POSITIVE (NEGATIVE); ANA TITER 1:40 titer (<1:40); ANA TITER 2 1:40 titer (NEGATIVE)
[2024-05-25 15:07] LABS: LYME TOTAL ANTIBODY CIA <= 0.90 Index (<=0.90)
== END ==
LOC: M LAB REF 16:24
PROVIDERS: ATTEND Internal Medicine
DX: M06.4 Inflammatory polyarthropathy (principal); D50.9 Iron deficiency anemia, unspecified

== ENCOUNTER → 2024-08-04 | Outpatient (CLI) | payer MEDICARE, BC | LOC: M WHC 11:42 | PROVIDERS: ATTEND Internal Medicine | DX: Z12.31 Encounter for screening mammogram for malignant neoplasm of breast (principal); R92.323 Mammographic fibroglandular density, bilateral breasts ==

== ENCOUNTER → 2024-09-01 | Outpatient (REF) | payer MEDICARE, BC | LOC: M LAB REF 12:24 | PROVIDERS: ATTEND Internal Medicine | DX: M06.4 Inflammatory polyarthropathy (principal) ==

== ENCOUNTER → 2024-11-16 | Outpatient (CLI) | payer MEDICARE, BC ==
[~2024-11-16] MED LIST changes: +PRAV10TA PO; -PRAV10TA4 PO; -PRAV20TA2 PO; +PRAV20TA78 PO
== END ==
LOC: M PLAIMG 11:31
PROVIDERS: ATTEND Internal Medicine
DX: M19.041 Primary osteoarthritis, right hand (principal); M19.042 Primary osteoarthritis, left hand; Z87.81 Personal history of (healed) traumatic fracture; M25.771 Osteophyte, right ankle; M25.772 Osteophyte, left ankle; M77.32 Calcaneal spur, left foot; M18.0 Bilateral primary osteoarthritis of first carpometacarpal joints; M06.4 Inflammatory polyarthropathy

== ENCOUNTER → 2024-11-16 | Outpatient (REF) | payer MEDICARE, BC ==
[2024-11-16 15:57] LABS: APPEARANCE, URINE CLEAR (CLEAR); BACTERIA, URINE AUTO NEGATIVE (NEGATIVE); BILIRUBIN, URINE AUTO NEGATIVE (NEGATIVE); BLOOD, URINE BLOOD NEGATIVE (NEGATIVE); GLUCOSE, URINE (UA) AUTO NEGATIVE (NEGATIVE); KETONE, URINE AUTO NEGATIVE (NEGATIVE); LEUKOCYTE ESTERASE, URINE AUTO NEGATIVE (NEGATIVE); NITRITE, URINE AUTO NEGATIVE (NEGATIVE); PROTEIN, URINE AUTO NEGATIVE (NEGATIVE); RBC, URINE AUTO 0 /HPF (0-3); SPECIFIC GRAVITY URINE AUTO 1.004 (1.002-1.035); SQUAMOUS EPITHELIAL CELL UR AU 0 /HPF (0-6); UROBILINOGEN, URINE AUTO 0.2 mg/dL (0.0-2.0); WBC, URINE AUTO 0 /HPF (0-3)
[2024-11-16 16:10] LABS: BASO # 0.0 10^3/uL (0.0-0.2); BASO % 0.4 % (0.0-1.0); EOS # 0.1 10^3/uL (0.0-0.5); EOS % 1.3 % (0.0-3.0); LYMPH # 2.8 10^3/uL (1.5-5.0); LYMPH % 35.3 % (24.0-44.0); MONO # 0.5 10^3/uL (0.0-0.8); MONO % 5.8 % (2.0-8.0); NEUTROPHILS # 4.5 10^3/uL (1.5-8.5); NEUTROPHILS % 56.9 % (36.0-66.0); PLATELET COUNT, AUTOMATED 354 10^3/uL (150-450)
[2024-11-16 16:17] LABS: ERYTHROCYTE SEDIMENTATION RATE 16 mm/hr (0-30)
[2024-11-16 16:18] LABS: C REACTIVE PROTEIN QUANTITATIV < 0.50 MG/DL (<1.0)
[2024-11-16 16:19] LABS: ALT/SGPT 21 U/L (7.0-40); AST/SGOT 29 U/L (<34); CALCIUM LEVEL 9.9 MG/DL (8.3-10.6); CARBON DIOXIDE LEVEL 27 MMOL/L (20-31); CHLORIDE LEVEL 106 MMOL/L (98-107); CREATININE FOR GFR 0.75 MG/DL (0.55-1.30); GLOMERULAR FILTRATION RATE 83.0 (>39); POTASSIUM SERUM 4.1 MMOL/L (3.5-5.1); SODIUM LEVEL 143 MMOL/L (136-145)
[2024-11-16 16:20] LABS: COMPLEMENT C4 42.1 MG/DL (12-36); HEPATITIS B SURFACE ANTIBODY NEGATIVE (POSITIVE); TOTAL 25(OH) VITAMIN D 99.2 NG/ML (20.0-100.0)
[2024-11-16 16:25] LABS: TOTAL PROTEIN,RANDOM URINE 6.4 MG/DL (0.0-14.0)
[2024-11-16 16:52] LABS: HEPATITIS C VIRUS ABY INDEX 0.08 INDEX (<0.8)
[2024-11-18 15:20] LABS: HEPATITIS B CORE ANTIBODY IGG NON-REACTIVE (NON-REACTIVE)
[2024-11-21 15:08] LABS: COMPLEMENT TOTAL (CH50) > 60 U/mL (31-60)
== END ==
LOC: M SFHCRHEU 10:27
PROVIDERS: ATTEND Internal Medicine
DX: R76.8 Other specified abnormal immunological findings in serum (principal); R53.83 Other fatigue; M06.4 Inflammatory polyarthropathy; Z11.59 Encounter for screening for other viral diseases